=== PATIENT | female | born 1945 | race Caucasian/White ===

== ENCOUNTER 2022-02-11 11:00 | Outpatient (RCR) | payer OTHER, SELFPAY | END 2022-03-19 14:44 | disposition home or self-care (01) | PROVIDERS: PCP Family Medicine; Visit Provider Family Medicine | DX: M54.50 Low back pain, unspecified (principal); G89.29 Other chronic pain; R53.1 Weakness; Z51.89 Encounter for other specified aftercare | CPT/HCPCS: 97110; 97140; 97161 ==

== ENCOUNTER 2023-05-12 11:15 | Outpatient (RCR) | payer MEDICARE, SELFPAY | END 2023-07-05 14:51 | disposition home or self-care (01) | PROVIDERS: PCP Family Medicine; Visit Provider Family Medicine | DX: M54.50 Low back pain, unspecified (principal); Z51.89 Encounter for other specified aftercare | CPT/HCPCS: 97110; 97140; 97162 ==

== ENCOUNTER 2023-07-29 05:47 | Emergency (ER) | payer MEDICARE, SELFPAY ==
[2023-07-29 06:07] VITALS: BP 129/74; PULSE 56; RESP 20; TEMP 36.5; O2SAT 96
--- NOTE | 2023-07-29 06:28 | XR_ITS ---
Patient: ELY CASTILLO Facility:?[facility] Patient ID:?[id number] Site Patient ID:?[id number]. Site :?[id number] Study:?XRay-Chest 2 VIEW-07/29/2023 6:43:49 AM Ordering Physician:HARPER Final Report: INDICATION: : Pleuritic chest pain TECHNIQUE: PA and lateral 2 view chest COMPARISON: 03/06/2017 FINDINGS: Lung volumes are good. No focal or diffuse opacities. No pleural effusion. No pneumothorax. Heart size is upper limits of normal. Ectatic descending thoracic aorta. Small electronic device over the left anterior chest. IMPRESSION: Lungs clear. No acute findings. Dictated by Sara Rivera MD @ 07/29/2023 6:50:57 AM Signed by:?Sara Rivera MD @07/29/2023 6:50:57 AM (Electronic Signature)
--- NOTE | 2023-07-29 06:56 | ED_ITS ---
HPI - General Adult General Chief complaint: Back Injury/Pain Stated complaint: back/lung pain Time Seen by Provider: 07/29/23 06:16 Source: patient and family Mode of arrival: ambulatory History of Present Illness HPI narrative: 78-year-old female presents the emergency department with posterior bilateral rib pain that wraps around laterally to the flank area and somewhat to the lower ribs/epigastrium. Not accompanied by shortness of breath, nausea or vomiting. She does have increased pain when taking a deep breath or cough. There is no productive cough, no fever. She is not having any cardiac symptoms. She reports that she currently has the heart monitor in place to investigate other ongoing outpatient concerns. She reports that she has had 3 bladder infections in the last month and lots of ongoing health issues. She states that the pain has been present for several days but seems to be worsening last night. She tried taking Tylenol at 10:00 p.m. with no significant improvement in her symptoms and did not know what else to do so she comes to the emergency room at 5:00 a.m.. She did not try ibuprofen or any other interventions besides a Lidoderm patch. She denies a history of ongoing back problems but I do see physical therapy notes from last year treating thoracolumbar back pain. No known sick contacts or trauma. Pain is constant, worse with deep breath, sharp at times. Radiates around to the anterior ribs and mostly laterally. Has had pleurisy in the past and says that this feels similar. She is unable to list her medications or her medical problems for me besides hypertension. I can gather from outpatient limited records that she has a history of gout, anxiety and hypertension as well as GERD. Complete history is not clear. Socially she states that she is nonsmoker. ROS is notable for the respiratory and musculoskeletal symptoms as described above, otherwise denies times 12 systems. Related Data Home Medications Medication Instructions Recorded Confirmed allopurinol 300 mg tablet 300 mg PO DAILY 07/29/23 07/29/23 carvedilol 25 mg tablet 25 mg PO BID 07/29/23 07/29/23 clonazepam 1 mg tablet 1 mg PO QPM 07/29/23 07/29/23 diltiazem HCl 240 mg 240 mg PO DAILY 07/29/23 07/29/23 capsule,extended release 24 hr famotidine 20 mg tablet 20 mg PO BID 07/29/23 07/29/23 lidocaine 5 % topical patch patch topical 07/29/23 olmesartan 40 mg tablet 40 mg PO DAILY 07/29/23 07/29/23 spironolactone 25 mg tablet 25 mg PO DAILY 07/29/23 07/29/23 Previous Rx's Medication Instructions Recorded tramadol 50 mg tablet 50 mg PO TID PRN pain #12 tabs 07/29/23 Allergies Allergy/AdvReac Type Severity Reaction Status Date / Time amlodipine Allergy Unknown Verified 07/29/23 06:07 ciprofloxacin Allergy Unknown Verified 09/21/22 14:06 Lisinopril Allergy Unknown Uncoded 09/21/22 14:06 Metoprolol Allergy Unknown Uncoded 09/21/22 14:06 Simvastatin Allergy Unknown Uncoded 09/21/22 14:06 Valsartan Allergy Unknown Uncoded 09/21/22 14:06 [facility] Social History Smoking Status: Never smoker Non-prescribed substance use: denies use Exam Const: Vital Signs, click to edit/add: Vital Signs - 24 hr 07/29/23 06:07 07/29/23 07:36 Temperature 97.7 F Pulse Rate [Pulse Oximeter] 56 L 46 L Respiratory Rate 20 18 Blood Pressure [Ri ght Upper Arm] 129/74 119/61 Pulse Oximetry 96 94 Oxygen Delivery Me thod Room Air Room Air Common normals: alert Other: Insight fair. Calm appears well nourished and nontoxic. HENMT: Common normals: normocephalic and head/scalp atraumatic Head and scalp: normocephalic and atraumatic Mouth: oral and palatal mucosa normal Throat: posterior oropharynx normal Eye: Common normals: conjunctivae normal General eye: normal appearance of both eyes Conjunctiva: conjunctiva(e) normal Neck & C-Spine: Common normals: no lymphadenopathy Chest: Common normals: inspection of chest normal Other: Diffusely tender to palpation of the ribs anteriorly and posteriorly. No crepitus or deformity noted. No rash to suggest shingles. Resp: Common normals: normal respiratory effort, no use of accessory muscles and clear to auscultation bilaterally Effort & inspection: able to speak in complete sentences Auscultation: clear to auscultation bilaterally Cardio: Common normals: regular rate, regular rhythm, S1 normal heart sound, S2 normal heart sound and no murmurs Rate: regular rate Rhythm: regular rhythm Heart sounds: S1 normal and S2 normal GI: Common normals: Normal to inspection, nondistended, normoactive bowel sounds present, soft to palpation and no masses Palpation: soft Other: Mild tenderness epigastrium but was not reproducible. Seems more associated with the lower ribs than the epigastrium. : Common normals: no CVA tenderness Bladder/kidney exam: no CVA tenderness Back & Pelvis: Common normals: no CVA tenderness Other: Increased kyphosis but no signs of trauma. Extremity: Common normals: normal capillary refill Other: Trace to 1+ appearing dependent edema. Equal bilateral Neuro: Sensorium/orientation: alert Speech: speech normal Motor exam: no movement abnormalities noted Psych: Common normals: speech normal Attitude: calm Speech: normal speech Mood and affect: anxious Insight: fair Judgement: fair Skin: Common normals: no rashes or lesions noted General skin exam: no rashes or lesions noted Course Course ED Course: Bilateral rib pain starting from the back wrapping around laterally most likely consistent with compression fracture, radiculopathy, pleurisy, chronic pain from osteoarthritis or osteoporosis related conditions. Cannot exclude cardiac process, pleural effusion, pulmonary embolism, viral infection, among others. Who recommended basic labs including intra-abdominal workup with lipase, CRP, renal function, electrolytes CBC, chest x-ray, EKG and troponin level. Will gi ve Toradol 15 mg IV x1 and 1 tablet of hydrocodone for pain control then reassess. The fact that her oxygen levels are very good is reassuring. Cannot trust her heart rate as she is on beta-blockers to be exclusionary for tachycardia. Reevaluation(s) Time of Reevaluation #1: 07:34 Reevaluation #1: Discussed lab and x-ray findings with patient. Borderline D-dimer is thought to be normal for a patient her age. Mild elevation of inflammatory markers upon review is not terribly uncommon for her with her history of gout and other conditions. Chest x-ray is very reassuring. I suspect that she is either having a flare-up of pleurisy or that she is having complications from osteoarthritis and osteoporosis in her thoracic spine. She certainly has multilevel disease on the x-ray and without a history of trauma and because her pain is so widespread, I think this makes a compression fracture less likely. She is feeling much better after the Toradol and single hydrocodone. We discussed strategies for pain management at home. She will be more aggressive with her Tylenol. She will add in NSAIDs only up to twice daily as needed as she does have a history in the past of kidney disease. Creatinine looks great today. Limited supply of tramadol will be given for severe pain. She has acce ss to a sleep aid, melatonin, Benadryl and also has a muscle relaxant at home to use if needed. We counseled on use of all of these strategies to help with sleep. If pain is not improving in 2 weeks I would like for her to follow-up in the clinic and any severe symptoms, hemoptysis, severe shortness of breath, should be re-evaluated in the emergency room. She verbalized understanding and agreement. Vital Signs Vital signs: Initial Vital Signs Temperature 97.7 F 07/29/23 06:07 Temperature Source Temporal Artery Scan 07/29/23 06:07 Pulse Rate 56 L 07/29/23 06:07 Pulse Strength 3+ Normal 07/29/23 06:07 Respiratory Rate 20 07/29/23 06:07 Blood Pressure 129/74 07/29/23 06:07 Blood Pressure Mean 92 07/29/23 06:07 Blood Pressure Position Sitting 07/29/23 06:07 Pulse Oximetry 96 07/29/23 06:07 Oxygen Delivery Method Room Air 07/29/23 06:07 Vital Signs Temperature 97.7 F 07/29/23 06:07 Pulse Rate 56 L 07/29/23 06:07 Respiratory Rate 20 07/29/23 06:07 Blood Pressure 129/74 07/29/23 06:07 Pulse Oximetry 96 07/29/23 06:07 Oxygen Delivery Method Room Air 07/29/23 06:07 Temperature 97.7 F 07/29/23 06:07 Pulse Rate 46 L 07/29/23 07:36 Respiratory Rate 18 07/29/23 07:36 Blood Pressure 119/61 07/29/23 07:36 Pulse Oximetry 94 07/29/23 07:36 Oxygen Delivery Method Room Air 07/29/23 07:36 Medications Administered Medications: Discontinued Medications Generic Name Dose Route Start Last Admin Trade Name Freq PRN Reason Stop Dose Admin Hydrocodone Bitart/Acetaminophen 1 tab 03/14/24 06:28 07/29/23 06:59 Hydrocodone-Acetamin 5-325 Mg 1 Tab PO 07/29/23 06:29 1 tab ONCE ONE Administration Ketorolac Tromethamine 15 mg 07/29/23 06:28 07/29/23 06:59 Ketorolac 15 Mg/Ml Inj IVP 07/29/23 06:29 15 mg ONCE ONE Administration Medical Decision Making Lab Data Lab results reviewed: Yes I reviewed the patient's lab results Lab results narrative: Borderline D-dimer thought to be normal for a patient her age. CRP is typically elevated in this patient. She does have a history of gout. Remainder of labs are reassuring. Labs: Lab Results 07/29/23 07/29/23 07/29/23 Range/Units 06:15 06:28 06:47 WBC 7.36 (4.50-11.00) K/uL RBC 3.73 L (4.00-5.20) m/uL Hgb 11.9 L (12.0-16.0) gm/dL Hct 35.9 (33.0-51.0) % MCV 96 (80-100) fL MCH 32 (26-34) pg MCHC 33 (32-36) gm/dL RDW Coeff of Lon 13.3 (11.5-15.5) % Plt Count 272 (140-440) K/uL Neut % (Auto) 62.5 (42.0-72.0) % Lymph % (Auto) 24.5 (20-44) % [place] % (Auto) 11.5 H (0.0-11.0) % Eos % (Auto) 1.0 (0.0-7.0) % Baso % (Auto) 0.1 (0.0-3.0) % Neut # (Auto) 4.60 (1.7-7.0) K/uL Lymph # (Auto) 1.80 (0.90-2.90) K/uL [place] # (Auto) 0.80 (0.00-0.90) K/UL Eos # (Auto) 0.07 (0.00-0.50) K/uL Baso # (Auto) 0.01 (0.00-0.30) K/uL Abs Immat Gran (auto) 0.03 (0.00-0.30) K/uL Imm/Tot Granulo (auto) 0.4 % D-Dimer Quant (PE/DVT) 0.90 H (0.00-0.50) ug/ml C-Reactive Protein 4.2 H (0.5-1.0) mg/dL Lipase 93 (23-300) U/L SARS-CoV-2 (PCR) Negative SARS-CoV-2 (Negative) Influenza Type A (PCR) Negative PCR FLU A (Negative) Influenza Type B (PCR) Negative PCR FLU B (Negative) RSV (PCR) Negative PCR RSV (Negative) POC Troponin I 0.00 L (0.01-0.04) ng/ml Imaging Data Chest x-ray: Attestation: I have reviewed the pertinent imaging results. My impression: Lungs appear clear. No infiltrate. Lots of osteopenia, vertebral compression and osteoarthritic changes to the thoracic spine. Radiologist's impression: IMPRESSION: Lungs clear. No acute findings. ECG Data Attestation: I personally reviewed and interpreted this ECG as follows: Prior ECG tracings: available for review (Comparison 03/06/2017) Interpretation: Mild sinus bradycardia, rate of 48. Normal intervals and axis. There is some subtle anterior changes in leads 2 V4 and V5 that are unchanged from February of 2017. Stable EKG with no acute ischemia. Discharge Plan Discharge Clinical Impression: Pleurisy Patient Disposition: Home w/ Parent or Adult Condition: Improved Instructions: Pleurisy (DC) Additional Instructions: I am glad that the pain medication was helpful for you. Your workup does not show any signs of pneumonia, pleural effusion, heart problems or other complication today. This is great news. With her history of kidney disease, we do have to use anti-inflammatory pain medications carefully. I think these could be very beneficial for you so I do recommend that you use the short term. For pain, primarily use Tylenol 1000 mg every 6 hours. Take this automatically whether you are in pain or not so that your pain does not get severe again. Do this for at least the next 5 days, but is okay to use long-term if needed. If the pain is still bothersome, at in ibuprofen 600 mg twice daily. Try not to use this more than twice daily due to your history of kidney disease. Try to limit this to only 5 days for the ibuprofen. I have also given you a small supply of tramadol. This is a gentle narcotic medication that can be used only if the other 2 medications are not effective enough for you. Remember that you may continue to use melatonin, Benadryl, your home doses of your sleep 8 and or your home doses of your muscle relaxant to help with sleep as well. Proper dosing a melatonin would be 10 mg at bedtime. It will likely take 1-2 weeks for this pain to improve. The other condition that could be causing this is related to arthritis and osteoporosis in your back. There are multiple spots of this on your x-ray. It is difficult to say that once certain spot could cause these are new symptoms. Based on your exam, I think this is less likely but if your symptoms are not improving, this should be considered. Follow-up with her primary care provider if things are not improving in 2 weeks. Come back to the emergency department if your coughing up blood, having severe shortness of breath and or severe worsening. Activity Level: No Restrictions Discharge Diet: Regular Prescriptions: New tramadol 50 mg tablet 50 mg PO TID PRN (Reason: pain) Qty: 12 0RF No Action carvedilol 25 mg tablet 25 mg PO BID diltiazem HCl 240 mg capsule,extended release 24hr 240 mg PO DAILY clonazepam 1 mg tablet 1 mg PO QPM spironolactone 25 mg tablet 25 mg PO DAILY famotidine 20 mg tablet 20 mg PO BID lidocaine 5 % adhesive patch,medicated topical allopurinol 300 mg tablet 300 mg PO DAILY olmesartan 40 mg tablet 40 mg PO DAILY Follow Up/Referrals: Adenike Fraga MD [Primary Care Provider] - Stand Alone Forms: [employer] Info Instructions
[2023-07-29] MEDS: KETOROLAC 15 MG/ML inj IVP (06:59)
[2023-07-29] MEDS: HYDROCODONE-ACETAMIN 5-325 MG 1 TAB PO (06:59)
[2023-07-29 07:04] LABS: PCR FLU A Negative PCR FLU A (Negative); PCR FLU B Negative PCR FLU B (Negative); PCR RSV Negative PCR RSV (Negative); SARS PCR* Negative SARS-CoV-2 (Negative)
[2023-07-29 07:09] LABS: Basophils Absolute Auto 0.01 K/uL (0.00-0.30); Basophils Percent Auto 0.1 % (0.0-3.0); Eosinophils Absolute Auto 0.07 K/uL (0.00-0.50); Hematocrit 35.9 % (33.0-51.0); Hemoglobin* 11.9 gm/dL (12.0-16.0); Immature Granulocytes Abs Auto 0.03 K/uL (0.00-0.30); Immature Granulocytes Pct Auto 0.4 %; Lymphocytes Percent Auto 24.5 % (20-44); Mean Corpuscular HGB Conc 33 gm/dL (32-36); Mean Corpuscular Hemoglobin 32 pg (26-34); Mean Corpuscular Volume 96 fL (80-100); Monocytes Percent Auto 11.5 % (0.0-11.0); Neutrophils Percent Auto 62.5 % (42.0-72.0); Platelet Count* 272 K/uL (140-440); RDW Coefficient of Variation % 13.3 % (11.5-15.5); Red Blood Count 3.73 m/uL (4.00-5.20); White Blood Count* 7.36 K/uL (4.50-11.00)
[2023-07-29 07:10] LABS: Slide Review Reflex No
[2023-07-29 07:19] LABS: Lipase* 93 U/L (23-300)
[2023-07-29 07:23] LABS: C Reactive Protein* 4.2 mg/dL (0.5-1.0)
[2023-07-29 07:36] VITALS: BP 119/61; PULSE 46; RESP 18; O2SAT 94
== END 2023-07-29 08:00 | disposition home or self-care (01) ==
PROVIDERS: Emergency Provider Family Medicine; PCP Family Medicine
DX: R09.1 Pleurisy (principal)
CPT/HCPCS: 36415; 71046; 81003; 83690; 84484; 85025; 85379; 86140; 87631; 93005; 96374; 99284; 99285; A9270; J1885

== ENCOUNTER 2024-03-13 09:38 | Emergency (ER) | payer MEDICARE, SELFPAY ==
[2024-03-13 09:46] VITALS: BP 110/64; PULSE 54; RESP 16; TEMP 36.3; O2SAT 97; BMI 30.4
--- NOTE | 2024-03-13 10:06 | CRLHL7_ITS ---
For Patients: As a result of the Century Cures Act, medical imaging exams and procedure reports are released immediately into your electronic medical record. You may view this report before your referring provider. If you have questions, please contact your health care provider. INDICATION: Chest pain. TECHNIQUE: Chest 2 views. COMPARISON: Chest radiograph 07/29/2023 CT abdomen pelvis 09/27/2020 FINDINGS: Cardiovascular and mediastinum: Heart size is normal. Unremarkable mediastinum. Lungs and pleural spaces: Lungs are clear. No sign of infiltrate or mass. No sign of pleural effusion. No pneumothorax. Bones and soft tissues: Chronic wedge deformity of the T11 vertebral body. Aortic atherosclerotic calcifications. IMPRESSION: No acute findings and no significant changes from the prior exam. Dictated by Jeannie Meyers MD @ 03/13/2024 10:47:04 AM (Electronically Signed)
--- NOTE | 2024-03-13 10:08 | ED.GENADULT ---
HPI - General Adult General Chief complaint: Urogenital Problems, Female Stated complaint: Low back pain c/o kidney UTI problems Time Seen by Provider: 03/13/24 09:57 Source: patient Mode of arrival: ambulatory Limitations: no limitations History of Present Illness HPI narrative: Patient is a 79-year-old female presenting today with several complaints. 1. patient is complaining of right flank pain. The Pain does not radiate. Nothing seems to make it better or worse. She denies fevers, chills, vomiting. She denies changes in her appetite. She does complain of increased urinary frequency. She states that when she gave her urine sample today, she notice a lot of blood in her urine. the pain has been present for 1 week. Patient does state that she has frequent UTIs. She had for this spring. Her last 1 was about a month ago she says. 2. Patient is complaining of chest pain. After we discussed her right-sided flank pain patient stated and by the way, I also have this pressure around my heart. she states that it has been present for 2 days. It is not associated with physical activity. It is dull and constant. Nothing seems to make it better. It is not associated with eating. However, sometimes when she moves she does feel it get worse. It does not prevent her from sleeping well at night. She is not coughing. She denies feeling dizzy or short of breath. She denies any recent travel. Related Data Home Medications ?Medication ?Instructions ?Recorded ?Confirmed allopurinol 300 mg tablet 300 mg PO DAILY 07/29/23 03/13/24 carvedilol 25 mg tablet 25 mg PO BID 07/29/23 03/13/24 clonazepam 1 mg tablet 1 mg PO QPM 07/29/23 03/13/24 diltiazem HCl 240 mg 240 mg PO DAILY 07/29/23 03/13/24 capsule,extended release 24 hr famotidine 20 mg tablet 20 mg PO BID 07/29/23 03/13/24 lidocaine 5 % topical patch patch topical 07/29/23 olmesartan 40 mg tablet 40 mg PO DAILY 07/29/23 03/13/24 spironolactone 25 mg tablet 25 mg PO DAILY 07/29/23 03/13/24 methocarbamol 500 mg tablet 1,000 mg PO BID 03/13/24 03/13/24 Previous Rx's ?Medication ?Instructions ?Recorded tramadol 50 mg tablet 50 mg PO TID PRN pain #12 tabs 07/29/23 Allergies Allergy/AdvReac Type Severity Reaction Status Date / Time amlodipine Allergy Unknown Verified 07/29/23 06:07 ciprofloxacin Allergy Unknown Verified 09/21/22 14:06 Lisinopril Allergy Unknown Uncoded 09/21/22 14:06 Metoprolol Allergy Unknown Uncoded 09/21/22 14:06 Simvastatin Allergy Unknown Uncoded 09/21/22 14:06 Valsartan Allergy Unknown Uncoded 09/21/22 14:06 Review of Systems Status of ROS: Reports: 10 or more systems reviewed and unremarkable except as noted in History and below [facility] Social History Smoking Status: Never smoker How often do you have a drink containing alcohol: 2-3 times a week AUDIT-C Alcohol total score: 3 Non-prescribed substance use: denies use Exam Narrative: Exam Narrative: Well-nourished well-developed patient in no acute distress. Alert and oriented. Answers questions appropriately. Mood and affect are appropriate. Thoughts are goal oriented and rational. No tangential or magical thinking noted. Patient speaks in full sentences without needing to catch [place]. HEENT: Normocephalic atraumatic. Pupils are equally round reactive to light. Extraocular muscles are intact. Conjunctivae are moist without any icterus noted. Moist mucous membranes. Cardiovascular: Heart is regular rate and rhythm S1 and S2 are present without any murmurs. Lungs: Clear to auscultation bilaterally no wheezes rhonchi or rales are appreciated. Patient takes deep breaths without any discomfort. Abdomen: Soft and nontender nondistended with normal bowel sounds. No guarding or rebound. no CVA tenderness. Extremities: Bilateral lower extremities are without edema. Skin: Well perfused . Back: Normal appearance. No tenderness of the paraspinal musculature. No tenderness of the thoracic or lumbar spine. Const: Vital Signs, click to edit/add: Vital Signs - 24 hr 03/13/24 09:46 03/13/24 11:51 Temperature 97.4 F L 96.8 F L Pulse Rate [Pulse Oximeter] 54 L 51 L Respiratory Rate 16 18 Blood Pressure [Ri ght Upper Arm] 110/64 139/87 Pulse Oximetry 97 97 Oxygen Delivery Me thod Room Air Room Air Course Course ED Course: EKG, read by me, chest x-ray, read by me, does not show any acute pathology. UA is entirely normal. Blood work is unremarkable. Abdominal CT scan does not show any acute pathology. She does have some left-sided renal atrophy. When I go discussed findings with the patient she was looking for her phone that she misplaced. Patient is able to get up and down from the bed without any difficulty, she is able to bend down look under the bed without any debilitating discomfort. She also tells me that she has been seeing an blood bank business manager for a thickened endometrial wall. We discussed that perhaps that is where her bleeding came from this morning, does not appear to be any blood coming from the bladder. Patient does have follow-up so already scheduled with OBGYN. Vital Signs Vital signs: Initial Vital Signs Temperature 97.4 F L 03/13/24 09:46 Temperature Source Temporal Artery Scan 03/13/24 09:46 Pulse Rate 54 L 03/13/24 09:46 Respiratory Rate 16 03/13/24 09:46 Blood Pressure 110/64 03/13/24 09:46 Blood Pressure Mean 79 03/13/24 09:46 Blood Pressure Position Sitting 03/13/24 09:46 Pulse Oximetry 97 03/13/24 09:46 Oxygen Delivery Method Room Air 03/13/24 09:46 Vital Signs Temperature 97.4 F L 03/13/24 09:46 Pulse Rate 54 L 03/13/24 09:46 Respiratory Rate 16 03/13/24 09:46 Blood Pressure 110/64 03/13/24 09:46 Pulse Oximetry 97 03/13/24 09:46 Oxygen Delivery Method Room Air 03/13/24 09:46 Temperature 96.8 F L 03/13/24 11:51 Pulse Rate 51 L 03/13/24 11:51 Respiratory Rate 18 03/13/24 11:51 Blood Pressure 139/87 03/13/24 11:51 Pulse Oximetry 97 03/13/24 11:51 Oxygen Delivery Method Room Air 03/13/24 11:51 Medications Administered Medications: Discontinued Medications Generic Name Dose Route Start Last Admin Trade Name Freq PRN Reason Stop Dose Admin Sodium Chloride 1 gm 03/13/24 11:14 03/13/24 11:43 Sodium Chloride 1 Gm Tablet PO 03/13/24 11:15 1 gm ONCE ONE Administration Medical Decision Making MDM Narrative Medical decision making narrative: 74-year-old female with right-sided back pain, likely musculoskeletal in nature. We discussed heat and Tylenol. Patient also states that she has muscle relaxers at home which she has not tried. She can certainly take that as well. I encouraged her to indeed follow-up with her OBGYN for further management of thickened endometrial lining and potential vaginal bleeding x1 that occurred this morning. Patient tells me she has been having normal bowel movements without blood or dark stools. Also recommended she mention renal atrophy to her primary care provider if that has not already been discussed in the past. Lab Data Lab results reviewed: Yes I reviewed the patient's lab results Labs: Lab Results 03/13/24 03/13/24 Range/Units 09:58 10:17 WBC 9.69 (4.50-11.00) K/uL RBC 4.17 (4.00-5.20) m/uL Hgb 13.0 (12.0-16.0) gm/dL Hct 39.7 (33.0-51.0) % MCV 95 (80-100) fL MCH 31 (26-34) pg MCHC 33 (32-36) gm/dL RDW Coeff of Lon 13.9 (11.5-15.5) % Plt Count 232 (140-440) K/uL Neut % (Auto) 64.5 (42.0-72.0) % Lymph % (Auto) 23.4 (20-44) % Wilkin % (Auto) 11.4 H (0.0-11.0) % Eos % (Auto) 0.4 (0.0-7.0) % Baso % (Auto) 0.2 (0.0-3.0) % Neut # (Auto) 6.25 (1.7-7.0) K/uL Lymph # (Auto) 2.27 (0.90-2.90) K/uL Wilkin # (Auto) 1.10 H (0.00-0.90) K/UL Eos # (Auto) 0.04 (0.00-0.50) K/uL Baso # (Auto) 0.02 (0.00-0.30) K/uL Abs Immat Gran (auto) 0.01 (0.00-0.30) K/uL Imm/Tot Granulo (auto) 0.1 % ESR 16 (2-20) mm/hr Sodium 128 L (135-149) mmol/L Potassium 5.1 (3.6-5.1) mmol/L Chloride 97 (96-114) mmol/L Carbon Dioxide 26 (20-32) mmol/L Anion Gap 5 L (7-15) mEq/L BUN 26 (7-30) mg/dL Creatinine 0.9 (0.5-1.5) mg/dL Estimated Creat Clear 47.53 Estimated GFR 66 ml/min Glucose 106 (60-115) mg/dL Lactate 0.8 (0.5-1.9) mmol/L Calcium 9.8 (8.4-10.6) mg/dL Total Bilirubin 0.5 (0.1-1.5) mg/dL Direct Bilirubin 0.1 (0.0-0.5) mg/dL AST 23 (12-35) U/L ALT 28 (4-35) U/L Alkaline Phosphatase 77 (40-150) U/L Troponin I < 0.01 L (0.01-0.04) ng/mL C-Reactive Protein < 0.5 L (0.5-1.0) mg/dL Total Protein 7.4 (6.0-8.3) g/dL Albumin 4.1 (3.3-5.0) g/dL Lipase 116 (23-300) U/L Urine Color Yellow (Yellow) Urine Appearance Clear (Clear) Urine pH 6.5 (5.0-8.5) Ur Specific Foster 1.020 (1.000-1.030) Urine Protein Negative (Negative) Urine Glucose (UA) Negative (Negative) Urine Ketones Negative (Negative) Urine Blood Negative (Negative) Urine Nitrite Negative (Negative) Urine Bilirubin Negative (Negative) Urine Urobilinogen 0.2 (0.2-1.0) Ur Leukocyte Esterase Negative (Negative) Urine RBC 0-2 (0-2) Urine WBC 0-2 (0-5) Ur Squamous Epith Cells Few (None-Few) Urine Bacteria Moderate A (None) Imaging Data Chest x-ray: Attestation: I have reviewed the pertinent imaging results. Radiologist's impression: Chest 2 views. COMPARISON: Chest radiograph 07/29/2023 CT abdomen pelvis 09/27/2020 FINDINGS: Cardiovascular and mediastinum: Heart size is normal. Unremarkable mediastinum. Lungs and pleural spaces: Lungs are clear. No sign of infiltrate or mass. No sign of pleural effusion. No pneumothorax. Bones and soft tissues: Chronic wedge deformity of the T11 vertebral body. Aortic atherosclerotic calcifications. IMPRESSION: No acute findings and no significant changes from the prior exam. CT scan - abdomen: Attestation: I have reviewed the pertinent imaging results. Radiologist's impression: TECHNIQUE: CT of the abdomen and pelvis without intravenous contrast. Multiplanar axial, coronal, and sagittal reformats were reconstructed. Contrast: None. FINDINGS: Lung bases: Minimal scarring and distortion in the posteromedial right lower lobe. Liver: Normal. No mass. Gallbladder and bile ducts: Normal gallbladder. No bile duct dilation. Pancreas: Normal. Spleen: Normal. Adrenal glands: Normal. Kidneys: Normal renal size and position. Bilateral lobular renal contour. Asymmetric mild left renal parenchymal volume loss. No calculi. No urinary tract dilation. Urinary bladder: Normal. Pelvis: Few small calcified uterine fibroids. No worrisome cyst or mass. Vessels: Heavy atherosclerotic vascular calcifications. No aortic aneurysm. Bowel: No dilated or inflamed bowel. Appendix not seen. Few scattered colonic diverticuli without diverticulitis. Mild stool burden. Lymph nodes: No adenopathy. Peritoneum: No ascites. Abdominal wall: Tiny fat containing inguinal hernias. Bones: Healed left 9th and 10th posterior rib fractures. T10 and T11 superior endplate compression fractures. Lower lumbar laminectomy. L3-L5 posterior instrumented fusion with bilateral pedicle screws and paired vertical rods. Solid bone grafting along the hardware. No hardware loosening or failure. Severe disc degeneration at L1-2 and L2-3. no focal worrisome bone lesions. IMPRESSION: 1. No urinary tract calculi or urinary tract dilatation. 2. Lobular renal contour with asymmetric left renal atrophy. Would be very difficult to detect a solid mass on this exam. Could consider ultrasound if there is any concern. 3. T10 and T11 superior endplate compression fractures of indeterminate acuity. There are healed left posterior rib fractures suggesting there is a remote local trauma. ECG Data Attestation: I personally reviewed and interpreted this ECG as follows: Discharge Plan Discharge Clinical Impression: Back pain Instructions: Acute Low Back Pain (ED) Additional Instructions: Your laboratory examinations today were normal, including your CRP. You are likely having musculoskeletal back pain. There was no evidence of a bladder infection, however, a urine culture is pending and should that be abnormal you will be called in approximately [address] scan CT scan did show slight atrophy of the left kidney, you will be sent home today with a printout of your CT scan results, recommend you share them with your primary care provider to discuss any next steps if needed. As far as the episode of bleeding you had this morning, it does not appear to be coming from your bladder. Recommend you follow-up with your OBGYN. Prescriptions: No Action methocarbamol 500 mg tablet 1,000 mg PO BID carvedilol 25 mg tablet 25 mg PO BID diltiazem HCl 240 mg capsule,extended release 24hr 240 mg PO DAILY clonazepam 1 mg tablet 1 mg PO QPM spironolactone 25 mg tablet 25 mg PO DAILY famotidine 20 mg tablet 20 mg PO BID lidocaine 5 % adhesive patch,medicated topical allopurinol 300 mg tablet 300 mg PO DAILY olmesartan 40 mg tablet 40 mg PO DAILY tramadol 50 mg tablet 50 mg PO TID PRN (Reason: pain) Qty: 12 0RF Follow Up/Referrals: Adenike Fraga MD [Primary Care Provider] - Stand Alone Forms: [employer] Info Instructions
[2024-03-13 10:09] LABS: Appearance Urine Clear (Clear); Bilirubin Urine Negative (Negative); Blood Urine Negative (Negative); Color Urine Yellow (Yellow); Glucose Urine Negative (Negative); Ketones Urine Negative (Negative); Leukocyte Esterase Urine Negative (Negative); Nitrite Urine Negative (Negative); Protein Urine Negative (Negative); Urobilinogen Urine 0.2 (0.2-1.0); pH Urine 6.5 (5.0-8.5)
[2024-03-13 10:19] LABS: Bacteria Urine Moderate; RBC Urine 0-2 (0-2); Squamous Epithelial Cell Urine Few (None-Few); WBC Urine 0-2 (0-5)
[2024-03-13 10:33] LABS: Basophils Absolute Auto 0.02 K/uL (0.00-0.30); Basophils Percent Auto 0.2 % (0.0-3.0); Eosinophils Absolute Auto 0.04 K/uL (0.00-0.50); Eosinophils Percent Auto 0.4 % (0.0-7.0); Hematocrit 39.7 % (33.0-51.0); Immature Granulocytes Abs Auto 0.01 K/uL (0.00-0.30); Immature Granulocytes Pct Auto 0.1 %; Lymphocytes Absolute Auto 2.27 K/uL (0.90-2.90); Lymphocytes Percent Auto 23.4 % (20-44); Mean Corpuscular HGB Conc 33 gm/dL (32-36); Mean Corpuscular Hemoglobin 31 pg (26-34); Mean Corpuscular Volume 95 fL (80-100); Monocytes Percent Auto 11.4 % (0.0-11.0); Neutrophils Absolute Auto 6.25 K/uL (1.7-7.0); Neutrophils Percent Auto 64.5 % (42.0-72.0); Platelet Count* 232 K/uL (140-440); RDW Coefficient of Variation % 13.9 % (11.5-15.5); Red Blood Count 4.17 m/uL (4.00-5.20); White Blood Count* 9.69 K/uL (4.50-11.00)
[2024-03-13 10:42] LABS: Slide Review Reflex No
[2024-03-13 10:48] LABS: Albumin* 4.1 g/dL (3.3-5.0); Chloride* 97 mmol/L (96-114)
[2024-03-13 10:49] LABS: Potassium* 5.1 mmol/L (3.6-5.1); Sodium* 128 mmol/L (135-149)
[2024-03-13 10:51] LABS: Creatinine* 0.9 mg/dL (0.5-1.5); Est. Creatinine Clearance* 47.53; Estimated Glomerular Filt Rate 66 ml/min
[2024-03-13 10:52] LABS: Alanine Aminotransferase* 28 U/L (4-35); Alkaline Phosphatase* 77 U/L (40-150); Anion Gap 5 mEq/L (7-15); Aspartate Amino Transferase* 23 U/L (12-35); Bilirubin Direct* 0.1 mg/dL (0.0-0.5); Bilirubin Total* 0.5 mg/dL (0.1-1.5); Blood Urea Nitrogen* 26 mg/dL (7-30); Calcium* 9.8 mg/dL (8.4-10.6); Carbon Dioxide* 26 mmol/L (20-32); Glucose* 106 mg/dL (60-115); Lipase* 116 U/L (23-300); Total Protein* 7.4 g/dL (6.0-8.3)
[2024-03-13 11:04] LABS: C Reactive Protein* < 0.5 mg/dL (0.5-1.0); Troponin I* < 0.01 ng/mL (0.01-0.04)
--- NOTE | 2024-03-13 11:18 | CRLHL7_ITS ---
For Patients: As a result of the Century Cures Act, medical imaging exams and procedure reports are released immediately into your electronic medical record. You may view this report before your referring provider. If you have questions, please contact your health care provider. INDICATION: Right flank pain. COMPARISON: Chest radiograph 03/13/2024 TECHNIQUE: CT of the abdomen and pelvis without intravenous contrast. Multiplanar axial, coronal, and sagittal reformats were reconstructed. Contrast: None. FINDINGS: Lung bases: Minimal scarring and distortion in the posteromedial right lower lobe. Liver: Normal. No mass. Gallbladder and bile ducts: Normal gallbladder. No bile duct dilation. Pancreas: Normal. Spleen: Normal. Adrenal glands: Normal. Kidneys: Normal renal size and position. Bilateral lobular renal contour. Asymmetric mild left renal parenchymal volume loss. No calculi. No urinary tract dilation. Urinary bladder: Normal. Pelvis: Few small calcified uterine fibroids. No worrisome cyst or mass. Vessels: Heavy atherosclerotic vascular calcifications. No aortic aneurysm. Bowel: No dilated or inflamed bowel. Appendix not seen. Few scattered colonic diverticuli without diverticulitis. Mild stool burden. Lymph nodes: No adenopathy. Peritoneum: No ascites. Abdominal wall: Tiny fat containing inguinal hernias. Bones: Healed left 9th and 10th posterior rib fractures. T10 and T11 superior endplate compression fractures. Lower lumbar laminectomy. L3-L5 posterior instrumented fusion with bilateral pedicle screws and paired vertical rods. Solid bone grafting along the hardware. No hardware loosening or failure. Severe disc degeneration at L1-2 and L2-3. no focal worrisome bone lesions. IMPRESSION: 1. No urinary tract calculi or urinary tract dilatation. 2. Lobular renal contour with asymmetric left renal atrophy. Would be very difficult to detect a solid mass on this exam. Could consider ultrasound if there is any concern. 3. T10 and T11 superior endplate compression fractures of indeterminate acuity. There are healed left posterior rib fractures suggesting there is a remote local trauma. Please note that all CT scans at this facility use dose modulation, iterative reconstruction, and/or weight-based dosing when appropriate to reduce radiation dose to as low as reasonably achievable. Dictated by Sara Rivera MD @ 03/13/2024 12:10:53 PM (Electronically Signed)
[2024-03-13 11:23] LABS: Erythrocyte SedimentationRate* 16 mm/hr (2-20)
[2024-03-13] MEDS: SODIUM CHLORIDE 1 GM TABLET PO (11:43)
[2024-03-13 11:51] VITALS: BP 139/87; PULSE 51; RESP 18; TEMP 36; O2SAT 97
[2024-03-13 11:57] LABS: Lactate* 0.8 mmol/L (0.5-1.9)
== END 2024-03-13 12:34 | disposition home or self-care (01) ==
PROVIDERS: Emergency Provider Family Medicine; PCP Family Medicine
DX: M54.9 Dorsalgia, unspecified (principal); R00.1 Bradycardia, unspecified
CPT/HCPCS: 36415; 71046; 74176; 80048; 80076; 81001; 83605; 83690; 84484; 85025; 85651; 86140; 87086; 87186; 93005; 99284; 99285; A9270